=== PATIENT | male | born 1975 | race Caucasian/White ===

== ENCOUNTER 2017-12-09 11:03 | Observation (INO) ==
[2017-12-09] MEDS ORDERED: Dextrose 50% in Water 50 ML Vial IV.PUSH PRN (15:00)
[2017-12-09] MEDS ORDERED: Senna/Docusate Sodium 8.6/50 MG Tablet PO PRN (15:06)
[2017-12-09] MEDS ORDERED: Docusate Sodium 100 MG Capsule PO PRN (15:06)
[2017-12-09] MEDS ORDERED: Aluminum/Magnesium/Simethacone Susp 30 ML UDC PO PRN (15:06)
[2017-12-09] MEDS: Sod Chloride 0.9% Inj 1,000 ML IV.CONT SCH (16:20)
--- NOTE | 2017-12-09 17:24 | P.HP ---
History of Present Illness Primary Care Physician: UNKNOWN Chief Complaint: Right facial numbness History of Present Illness: This is a 41-year-old male with a history of anxiety, hypothyroidism, hyperlipidemia and hypertension. He presents to the emergency department because of right facial numbness. Started about 6 days ago when he felt tingling sensation in the right side of his face. When he was driving he felt like there was an ice pack on his face. He was evaluated by his primary care physician and was prescribed prednisone which he started taking yesterday and sent him for blood work and x-ray. He presents to the emergency department because of worsening numbness not including his tongue. Denies swallowing difficulty, speech impediment, fever, chills, extremity numbness and weakness. For the last half an hour, he complains of pain behind his right eye. No visual changes. He tolerated aspirin that was given in the emergency department. States he does not really have an allergic reaction just develops upset stomach. EKG tracing interpreted by me with sinus rhythm no acute ST-T changes. Chest x-ray image without acute pulmonary disease independently reviewed by me. All other systems reviewed negative Review of Systems All other systems reviewed negative except as stated in HPI PMFSH - History History Provided By: Patient, Family Member - Medical History Medical History: Medical History (Last Reviewed 12/09/17 @ 17:19 by Saeid Vargas MD) Anxiety Depression Hypercholesteremia Hypertension Thyroid condition - Surgical History Surgical History: Surgical History (Last Reviewed 12/09/17 @ 17:19 by Saeid Vargas MD) Hx of vasectomy - Family History Family History: Family History (Last Updated 12/09/17 @ 17:20 by Saeid Vargas MD) Other No pertinent family history - Tobacco History Second Hand Smoke Exposure: No Tobacco Use In Past 30 Days: No Smoking Status: Former smoker Tobacco Type: Cigarettes - Alcohol History How Often Do You Have a Drink Containing Alcohol: 2 to 4 times a month - Substance Use History Substance History: No History of Abuse - Travel History Recent Travel in the [place] Within the Last 8 Weeks: No Recent Travel Out of the Country Within the Last 8 Weeks: No - Immunization History Tetanus Immunization: Unsure Medications and Allergies Active Medications: Active Medications Acetaminophen (Tylenol) 650 mg PO Q4H PRN PRN Reason: Temp > 100.4 Al Hydrox/Mg Hydrox/Simethicone (Mag-Al Plus Susp Liq) 30 ml PO Q6H PRN PRN Reason: DYSPEPSIA Al Hydroxide/Mg Hydroxide (Milk Of Magnesia Liq) 30 ml PO DAILY PRN PRN Reason: SEVERE CONSITIPATION Aspirin (Ecotrin) 325 mg PO DAILY [facility] Atorvastatin Calcium (Lipitor) 40 mg PO HS [facility] Buspirone HCl (Buspar) 10 mg PO BID [facility] Calcium Carbonate (Tums Chew) 1,000 mg CHEW TID PRN PRN Reason: DYSPEPSIA Dextrose (D50w Vial) 50 ml IV.PUSH UNSCH PRN PRN Reason: PER HYPOGLYCEMIA PROTOCOL Docusate Sodium (Colace) 100 mg PO BID PRN PRN Reason: CONSTIPATION Enalaprilat (Vasotec Inj) 1.25 mg IV.PUSH Q4H PRN PRN Reason: For SBP > 220 or DBP > 120 Glucagon (Glucagon Inj) 1 mg OTHER UNSCH PRN PRN Reason: for Hypoglycemia Protocol Sodium Chloride (Ns Inj) 1,000 mls @ 70 mls/hr IV.CONT .[id number] [facility] [place] Insulin Aspart (Novolog Insulin Correctional Sugar Inj) 0 unit SQ ACHS [facility]IB[facility]AV; Protocol Levothyroxine Sodium (Synthroid) 0 mcg PO .COMPLEX [facility] Loratadine (Claritin) 10 mg PO DAILY [facility] [place] Non-Formulary Medication (Lamotrigine [Lamictal]) 200 mg PO BID [facility] [place] Non-Formulary Medication (Ranitidine Hcl [Zantac 75]) 75 mg PO DAILY [facility] Ondansetron HCl (Zofran Inj) 4 mg IV.PUSH Q6H PRN PRN Reason: NAUSEA Senna/Docusate Sodium (Felicity-Colace) 1 tab PO BID PRN PRN Reason: CONSTIPATION Sertraline HCl (Zoloft) 100 mg PO HS [facility] [place] Sodium Chloride (Ns Flush) 2 ml IV.FLUSH PRN PRN PRN Reason: FLUSH AFTER USING IV ACCESS Sodium Chloride (Ns Flush) 2 ml IV.FLUSH BID [facility] Trazodone HCl (Desyrel) 100 mg PO HS [facility] Allergies Allergy/AdvReac Type Severity Reaction Status Date / Time aspirin AdvReac Gastrointestinal Verified 12/09/17 11:15 Upset Home Medications Medication Instructions Recorded Confirmed Type atorvastatin 40 mg PO HS 12/09/17 12/09/17 History buspirone 10 mg PO BID 12/09/17 12/09/17 History lamotrigine [Lamictal] 200 mg PO BID 12/09/17 12/09/17 History levothyroxine [Synthroid] See Label Instructions .ROUTE 12/09/17 12/09/17 History .COMPLEX loratadine 10 mg PO DAILY 12/09/17 12/09/17 History methylprednisolone 4 mg PO PER PKG DIR 12/09/17 12/09/17 History metoprolol tartrate 25 mg PO HS 12/09/17 12/09/17 History ranitidine HCl [Zantac 75] 75 mg PO DAILY 12/09/17 12/09/17 History sertraline [Zoloft] 100 mg PO HS 12/09/17 12/09/17 History testosterone cypionate 150 mg IM Q2W 12/09/17 12/09/17 History [Depo-Testosterone] trazodone 100 mg PO HS 12/09/17 12/09/17 History Exam Vital signs: Vital Signs 12/09/17 16:00 Temperature 97.2 F L Pulse Rate 70 Respiratory Rate 20 Blood Pressure 135/89 Pulse Oximetry 94 L Intake & Output 12/08/17 12/09/17 12/09/17 18:59 06:59 18:59 Weight 146.7 kg Other: Weight On Admission 146.7 kg Narrative: GENERAL: Well-developed, well-nourished in no distress SKIN: Warm and dry. HEAD: Atraumatic. Normocephalic. EYES: Pupils equal and round. No scleral icterus. No injection or drainage. ENT: No nasal bleeding or discharge. Mucous membranes pink and moist. NECK: Trachea midline. No JVD. CARDIOVASCULAR: Regular rate and rhythm. RESPIRATORY: No accessory muscle use. Clear to auscultation. Breath sounds equal bilaterally. GASTROINTESTINAL: Abdomen soft, non-tender, nondistended. MUSCULOSKELETAL: Extremities without clubbing, cyanosis, or edema. No obvious deformities. NEUROLOGICAL: Awake and alert. No obvious cranial nerve deficits. Motor grossly within normal limits. Five out of 5 muscle strength in the arms and legs. Normal speech. Decreased sensation right side of the face PSYCHIATRIC: Appropriate mood and affect; insight and judgment normal. Results - Labs Labs: Laboratory Results - last 24 hr 12/09/17 16:33 POC Glucose 103 - Imaging Head CT without acute findings Caprini VTE Risk Assessment Caprini VTE Risk Assessment: No/Low Risk (score <= 1) Caprini Risk Assessment Model: Point Value = 1 Point Value = 2 Point Value = 3 Point Value = 5 Age 41-60 Minor surgery BMI > 25 kg/m2 Swollen legs Varicose veins or History of unexplained or recurrent spontaneous Oral contraceptives or hormone replacement Sepsis (< 1 month) Serious lung disease, including pneumonia (< 1 month) Abnormal pulmonary function Acute myocardial infarction Congestive heart failure (< 1 month) History of inflammatory bowel disease Medical patient at bed rest Age 61-74 Arthroscopic surgery Major open surgery (> 45 min) Laparoscopic surgery (> 45 min) Malignancy Confined to bed (> 72 hours) Immobilizing plaster cast Central venous access Age >= 75 History of VTE Family history of VTE Factor V Leiden Prothrombin [id number] Lupus anticoagulant Anticardiolipin antibodies Elevated serum homocysteine Heparin-induced thrombocytopenia Other congenital or acquired thrombophilia Stroke (< 1 month) Elective arthroplasty Hip, pelvis, or leg fracture Acute spinal cord injury (< 1 month) Prophylaxis Regimen: Total Risk Factor Score Risk Level Prophylaxis Regimen 0-1 Low Early ambulation 2 Moderate Order ONE of the following: *Sequential Compression Device (SCD) *Heparin 5000 units SQ BID 3-4 Higher Order ONE of the following medications: *Heparin 5000 units SQ TID *Enoxaparin/Lovenox 40 mg SQ daily (WT < 150 kg, CrCl > 30 mL/min) *Enoxaparin/Lovenox 30 mg SQ daily (WT < 150 kg, CrCl > 10-29 mL/min) *Enoxaparin/Lovenox 30 mg SQ BID (WT < 150 kg, CrCl > 30 mL/min) AND/OR *Sequential Compression Device (SCD) 5 or more Highest Order ONE of the following medications: *Heparin 5000 units SQ TID (Preferred with Epidurals) *Enoxaparin/Lovenox 40 mg SQ daily (WT < 150 kg, CrCl > 30 mL/min) *Enoxaparin/Lovenox 30 mg SQ daily (WT < 150 kg, CrCl > 10-29 mL/min) *Enoxaparin/Lovenox 30 mg SQ BID (WT < 150 kg, CrCl > 30 mL/min) AND *Sequential Compression Device (SCD) Assessment and Plan - Plan This is a 41-year-old male with a history of anxiety, hypothyroidism, hyperlipidemia and hypertension. He presents to the emergency department because of right facial numbness. Started about 6 days ago when he felt tingling sensation in the right side of his face. When he was driving he felt like there was an ice pack on his face. He was evaluated by his primary care physician and was prescribed prednisone which he started taking yesterday and sent him for blood work and x-ray. He presents to the emergency department because of worsening numbness not including his tongue. Denies swallowing difficulty, speech impediment, fever, chills, extremity numbness and weakness. For the last half an hour, he complains of pain behind his right eye. No visual changes. He tolerated aspirin that was given in the emergency department. States he does not really have an allergic reaction just develops upset stomach. EKG tracing interpreted by me with sinus rhythm no acute ST-T changes. Chest x-ray image without acute pulmonary disease independently reviewed by me. Persistent right facial numbness, CVA suspect. Continue aspirin and start stroke workup which will include MRI MRA of the brain, carotid ultrasound, echocardiogram and monitor patient on telemetry. Check A1c. Patient states he just had a lipid panel check will request records from his PCP. Consult neurology, PT/OT/ST Leukocytosis patient on steroids. Will monitor. No evidence of infection at this time DVT prophylaxis with SCD and early ambulation
[2017-12-09] MEDS: Insulin NovoLOG Aspart Correctional Sugar Inj SQ SCH ×2 (17:51→20:30)
--- NOTE | 2017-12-09 20:06 | US ---
EXAM DATE: 12/09/2017 12:00 AM EDT AGE/SEX: 41 years / Male INDICATIONS: Transient ischemic attack. CLINICAL DATA: This is the patient's initial encounter. Patient reports that signs and symptoms have been present for 1 day and indicates a pain score of 0/10. MEDICAL/SURGICAL HISTORY: Hypercholesterolemia. Hypertension. Anxiety. Depression. None. COMPARISON: . VELOCITY PARAMETERS: ICA/CCA Ratio: Right 1.0 , Left 0.9 ICA: Right 73 cm/sec, Left 82 cm/sec CCA: Right 75 cm/sec, Left 92 cm/sec ECA: Right 108 cm/sec, Left 108 cm/sec Vertebral: Right 42 cm/sec antegrade, Left 64 cm/sec antegrade FINDINGS: Right Carotid: No significant plaque is visualized.The waveforms are within normal limits. Left Carotid: No significant plaque is visualized. The waveforms are within normal limits. Other: None. CONCLUSION: 1. Right Internal Carotid Artery: No significant plaque or narrowing. 2. Left Internal Carotid Artery: No significant plaque or narrowing. Electronically signed by: Jack Avalos MD 12/09/2017 8:04 PM EDT
[2017-12-09] MEDS: lamoTRIgine 100 MG Tablet PO SCH (20:18)
[2017-12-09] MEDS: Acetaminophen 325 MG Tablet PO PRN (20:18)
[2017-12-09] MEDS: traZODone 100 MG Tablet PO SCH (20:19)
[2017-12-09] MEDS: Famotidine 20 MG Tablet PO SCH (20:20)
[2017-12-09] MEDS: Sertraline 100 MG Tablet PO SCH (20:21)
[2017-12-10] MEDS ORDERED: Ketorolac Inj 30 MG/ML (IVP) Vial IV.PUSH PRN (00:07)
[2017-12-10] MEDS: Sod Chloride 0.9% Inj 1,000 ML IV.CONT SCH ×2 (06:14→21:38)
[2017-12-10] MEDS: Acetaminophen 325 MG Tablet PO PRN (06:15)
[2017-12-10] MEDS: Levothyroxine 100 MCG Tablet PO SCH (06:15)
[2017-12-10] MEDS ORDERED: Naloxone Inj 0.4 MG/ML Vial IV.PUSH PRN (09:26)
--- NOTE | 2017-12-10 09:31 | P.PN ---
Subjective Interval history: Follow-up facial numbness. Numbness has not abated. Also complains of throbbing/stabbing right-sided headache behind eye temporarily with Tylenol and IV Toradol. Also has light sensitivity. Physical Exam Vital signs: Vital Signs 12/09/17 16:00 12/09/17 17:16 12/09/17 20:00 Temperature 97.2 F L 97.1 F L Pulse Rate 70 76 71 Respiratory Rate 20 20 Blood Pressure 135/89 145/82 H Pulse Oximetry 94 L 97 12/09/17 20:23 12/09/17 23:10 12/10/17 00:00 Temperature 97 F L Pulse Rate 83 Respiratory Rate 20 Blood Pressure 134/58 L Pulse Oximetry 96 97 97 12/10/17 04:00 12/10/17 08:05 Temperature 96 F L Pulse Rate 77 Respiratory Rate 20 Blood Pressure 129/78 Pulse Oximetry 96 96 Intake & Output 12/09/17 12/10/17 12/10/17 18:59 06:59 18:59 Intake Total 1570 / 1570 Balance 1570 / 1570 Weight 146.7 kg 146.7 kg Intake: IV 1000 / 1000 NS Inj 1,000 ML @ 70 mls/hr IV. 1000 / 1000 CONT .[id number] VAIBHAV Rx#: [id number] Oral 570 / 570 Other: # Voids 1 3 Weight On Admission 146.7 kg Narrative: GENERAL: Well-developed, well-nourished in no distress SKIN: Warm and dry. CARDIOVASCULAR: Regular rate and rhythm. RESPIRATORY: No accessory muscle use. Clear to auscultation. Breath sounds equal bilaterally. GASTROINTESTINAL: Abdomen soft, non-tender, nondistended. MUSCULOSKELETAL: Extremities without clubbing, cyanosis, or edema. No obvious deformities. NEUROLOGICAL: Awake and alert. No obvious cranial nerve deficits. Motor grossly within normal limits. Five out of 5 muscle strength in the arms and legs. Normal speech. Decreased sensation right side of the face PSYCHIATRIC: Appropriate mood and affect; insight and judgment normal. Results - Labs Laboratory Results - last 24 hr 12/09/17 12/09/17 12/10/17 16:33 20:29 07:49 POC Glucose 103 125 H 96 - Imaging Impressions Carotid Doppler Study 12/09/17 00:00 CONCLUSION: 1. Right Internal Carotid Artery: No significant plaque or narrowing. 2. Left Internal Carotid Artery: No significant plaque or narrowing. - Procedures none Assessment and Plan - Plan This is a 41-year-old male with a history of anxiety, hypothyroidism, hyperlipidemia and hypertension. He presents to the emergency department because of right facial numbness. Persistent right facial numbness, CVA suspect. Carotid ultrasound negative for significant stenosis. Continue aspirin and f/u stroke workup which will include MRI of the brain, echocardiogram and monitor patient on telemetry which so far is benign. Check A1c. Neurology ordered more lab tests including ESR, thyroid function tests, RPR and ENIO. Patient states he just had a lipid panel check will request records from his PCP. Consult neurology, PT/OT/ST. Patient also complains of headache possible migraine continue Tylenol and IV Toradol. Consider Fioricet or Imitrex if MRI negative Leukocytosis patient on steroids. Will monitor. No evidence of infection at this time. Repeat CBC today DVT prophylaxis with SCD and early ambulation Discharge Planning: per neuro
[2017-12-10] MEDS: Insulin NovoLOG Aspart Correctional Sugar Inj SQ SCH ×4 (09:34→23:10)
[2017-12-10 09:38] LABS: Baso % (Auto) 0.4 % (0.0-2.0); Eos # (Auto) 0.1 th/mm3 (0.0-0.4); Eos % (Auto) 1.1 % (0.0-4.0); Hematocrit 44.1 % (39.0-51.0); Hemoglobin 15.6 gm/dL (13.0-17.0); Lymph # (Auto) 2.5 th/mm3 (1.0-4.8); Lymph % (Auto) 26.4 % (9.0-44.0); Mean Corpuscular HGB Conc 35.3 % (32.0-36.0); Mean Corpuscular Hemoglobin 30.8 pg (27.0-34.0); Mean Corpuscular Volume 87.1 fL (80.0-100.0); Mean Platelet Volume 7.8 fL (7.0-11.0); Mono # (Auto) 0.5 th/mm3 (0.0-0.9); Mono % (Auto) 5.2 % (0.0-8.0); Neut # (Auto) 6.4 th/mm3 (1.8-7.7); Neut % (Auto) 66.9 % (16.0-70.0); Platelet Count 276 th/mm3 (150-450); Red Blood Count 5.06 mil/mm3 (4.50-5.90); Red Cell Distribution Width 12.9 % (11.6-17.2); White Blood Count 9.5 th/mm3 (4.0-11.0)
[2017-12-10] MEDS: Famotidine 20 MG Tablet PO SCH ×2 (10:00→21:17)
[2017-12-10] MEDS: lamoTRIgine 100 MG Tablet PO SCH ×2 (10:01→21:16)
[2017-12-10] MEDS: Loratadine 10 MG Tablet PO SCH (10:01)
[2017-12-10 10:49] LABS: Bilirubin,Urine Negative (Negative); Clarity,Urine Clear (Clear); Color,Urine Yellow (Yellw/Straw); Glucose,Urine (UA) Negative (Negative); Leukocyte Esterase,Urine Negative (Negative); Nitrite,Urine Negative (Negative); PH,Urine 5.5 (5.0-8.5); Specific Gravity,Urine Greater/Equal 1.030 (1.002-1.035); Urobilinogen,Urine 0.2 mg/dL (Less than 2)
[2017-12-10 10:55] LABS: Mucus,Urine Few /lpf (Occasional); RBC,Urine 0-3 /hpf (0-3); Squamous Epithelial Cell,Urine 0-5 /hpf (0-5)
[2017-12-10] MEDS: Ketorolac Inj 30 MG/ML (IVP) Vial IV.PUSH PRN ×2 (11:41→20:42)
[2017-12-10 12:47] LABS: Free T4 (Free Thyroxine) 0.71 ng/dL (0.76-1.46)
--- NOTE | 2017-12-10 12:47 | ECHRPT ---
Indication: CVA / TIA CONCLUSIONS Normal left ventricular size. Wall thickness is measured at the upper limits of normal. The left ventricular systolic function is normal with an estimated ejection fraction in the range of 55-60%. There is trace tricuspid valve regurgitation. The estimated pulmonary arterial pressure is 28 mmHg. BP: / HR: Rhythm: MEASUREMENTS (Male / Female) Normal Values Technical Quality:Fair 2D ECHO LV Diastolic Diameter PLAX 5.0 cm 4.2 - 5.9 / 3.9 - 5.3 cm LV Systolic Diameter PLAX 3.6 cm IVS Diastolic Thickness 1.2 cm 0.6 - 1.0 / 0.6 - 0.9 cm LVPW Diastolic Thickness 1.1 cm 0.6 - 1.0 / 0.6 - 0.9 cm LV Relative Wall Thickness 0.5 RV Internal Dim ED PLAX 2.8 cm LVOT Diameter 2.1 cm Aortic Root Diameter 3.1 cm LA Systolic Diameter LX 3.5 cm 3.0 - 4.0 / 2.7 - 3.8 cm M-MODE AV Cusp Separation MM 2.2 cm DOPPLER AV Peak Velocity 134.0 cm/s AV Peak Gradient 7.2 mmHg LVOT Peak Velocity 121.0 cm/s LVOT Peak Gradient 5.9 mmHg AV Area Cont Eq pk 3.1 cm Mitral E Point Velocity 95.3 cm/s Mitral A Point Velocity 58.2 cm/s Mitral E to A Ratio 1.6 LV E' Lateral Velocity 15.7 cm/s Mitral E to LV E' Lateral Ratio 6.1 LV E' Septal Velocity 16.0 cm/s Mitral E to LV E' Septal Ratio 6.0 TR Peak Velocity 209.0 cm/s TR Peak Gradient 17.5 mmHg Right Atrial Pressure 10.0 mmHg Pulmonary Artery Systolic Pressu 27.5 mmHg Right Ventricular Systolic Press 27.5 mmHg PV Peak Velocity 100.0 cm/s PV Peak Gradient 4.0 mmHg FINDINGS LEFT VENTRICLE Normal left ventricular size. Wall thickness is measured at the upper limits of normal. The left ventricular systolic function is normal with an estimated ejection fraction in the range of 55-60%. RIGHT VENTRICLE Normal right ventricular size and systolic function. LEFT ATRIUM The left atrial size is normal. RIGHT ATRIUM The right atrial size is normal. ATRIAL SEPTUM Normal atrial septal thickness without atrial level shunting by limited color doppler interrogation. AORTA The aortic root and proximal ascending aorta are normal in size on limited imaging. MITRAL VALVE Structurally normal mitral valve. No mitral valve stenosis or regurgitation. AORTIC VALVE Trileaflet aortic valve. TRICUSPID VALVE There is trace tricuspid valve regurgitation. The estimated pulmonary arterial pressure is 28 mmHg. PULMONARY VALVE No pulmonary valve regurgitation or stenosis. VESSELS The inferior vena cava is normal in size. PERICARDIUM No pericardial effusion. Nando Benoit MD, FACC (Electronically Signed) Final Date:10 December 2017 12:46
--- NOTE | 2017-12-10 13:21 | MB ---
cc: Uche Dill MD DATE: 12/10/2017 HISTORY OF PRESENT ILLNESS: A 41-year-old right-handed male with hypertension, hypercholesterolemia, hypothyroidism, dysplastic polyp in his colon. He does not take an aspirin a day. He has 2 grandmothers who had miscarriages. No blood clots in the family. He noticed about a week ago, his right cheek began to feel numb and that seemed to grow steadily over the week, worse in the last 2 days involved. It does involve his tongue. No difficulty swallowing. He has had a headache behind both of his eyes yesterday. He usually does get very many headaches. REVIEW OF SYSTEMS:. He denied diabetes, MA, stent, angioplasty, AFib, Coumadin; renal, hepatic or pulmonary disease, lupus, ulcer, seizure or stroke. SOCIAL HISTORY: Nonsmoker, occasionally has a drink, lives with his . FAMILY HISTORY: Positive for cancer. Negative for seizure or stroke. MEDICATIONS AT HOME: He is on: 1. Lamictal 200 b.i.d. 2. BuSpar 10 b.i.d. 3. Atorvastatin. 4. Loratadine. 5. Thyroid medicine. 6. Metoprolol. 7. Methylprednisolone 8. Zoloft 100 at night. 9. Zantac. 10. Trazodone. PHYSICAL EXAMINATION: GENERAL: He does not look particularly nervous. VITAL SIGNS: Afebrile, 70, 20, 137/83. NECK: There are no carotid bruits. HEART: Regular rate and rhythm. I did not a murmur. NEUROLOGIC: Pupils are equal. Visual beck are full. Extraocular movements intact without nystagmus. Face moves symmetrically. Tongue was midline. Pinprick is diminished in the V2, V3 distribution. This is on the right side compared to the left. Pinprick was intact in the hands, arms and legs bilaterally. He had normal strength in upper and lower extremities bilaterally. DTRs are 1 plus and symmetric throughout. Toes are downgoing bilaterally. There is no ankle clonus. Speech is fluent. He is not aphasic. No apparent distress. LABORATORY DATA: CBC and sedimentation rate were normal. RPR is pending. ENIO is pending. UA is negative. His B12 is low at 270. Thyroid T4 slightly low. Folate is normal. He had an echocardiogram, which is normal. Left atrial size normal. He had a carotid ultrasound study. It was read as negative. IMPRESSION: A mass or growing aneurysm could be considered. A stroke is another consideration. We do an MRI of his brain, MRA and neck and [place]. We will know more after we do that. Now he is on aspirin a day. Some additional labs are pending. I would recommend giving him a B12 shot. We will see him back in followup. MD MARIBELL Michel/ct , 12:59 PM , 01:06 PM
--- NOTE | 2017-12-10 14:48 | MR ---
EXAM DATE: 12/10/2017 10:22 AM EDT AGE/SEX: 41 years / Male INDICATIONS: CVA. Right sided numbness. CLINICAL DATA: This is the patient's initial encounter. Patient reports that signs and symptoms have been present for 1 day and indicates a pain score of 0/10. MEDICAL/SURGICAL HISTORY: Hypertension. . Vasectomy. COMPARISON: [facility], CT HEAD W/O CONTRAST, 12/09/2017. . TECHNIQUE: 3D [id number] MRA was performed. Source images, multiplanar STS MIP, and 3D volum e MIP reconstructions were reviewed. FINDINGS: There is excellent visualization of the major intracranial arteries out to the second-order branch ve ssels. There is no evidence for aneurysm, vessel truncation or stenosis, and no evidence for vascula r malformation. There are patent bilateral posterior communicating arteries. CONCLUSION: 1. Negative MRA Cow ([place]) non contrast. Electronically signed by: Rivera Muniz MD 12/10/2017 2:46 PM EDT
[2017-12-10 14:58] LABS: Potassium 3.7 meq/L (3.5-5.1)
[2017-12-10 15:01] LABS: Calcium 7.8 mg/dL (8.5-10.1)
[2017-12-10 15:02] LABS: Albumin 3.5 g/dL (3.4-5.0)
[2017-12-10 15:06] LABS: Total Protein 6.6 g/dL (6.4-8.2)
--- NOTE | 2017-12-10 15:08 | MR ---
EXAM DATE: 12/10/2017 10:22 AM EDT AGE/SEX: 41 years / Male INDICATIONS: Stroke. Right sided numbness. CLINICAL DATA: This is the patient's initial encounter. Patient reports that signs and symptoms have been present for 1 day and indicates a pain score of 0/10. MEDICAL/SURGICAL HISTORY: Hypertension. . Vasectomy. COMPARISON: No prior exams available for comparison. TECHNIQUE: 10 ml Gadavist (gadobutrol) contrast infused MRA (cumulative dose for multiple exams) of the extracranial circulation was performed using a neurovascular coil. Postprocessing was performed , including rotating sub-volume maximum intensity projections of each carotid artery, rotating full-v olume maximum intensity projections of both carotid arteries, sagittal and coronal sliding thin-slab reformations of each carotid artery, and left oblique sliding thin-slab reformation through the aorti c arch to include the origin of the arch branch vessels. FINDINGS: Aortic Arch : There is a three-vessel origin of the great vessels from the aorta. No evidence of o stial narrowing. Right Carotid : The common carotid artery is intact. The carotid bulb has a normal configuration wi thout ulceration or narrowing. The internal carotid artery lumen is smooth without stenosis. The ex ternal carotid artery is intact. Left Carotid : The common carotid artery is intact. The carotid bulb has a normal configuration wit hout ulceration or narrowing. The internal carotid artery lumen is smooth without stenosis. The ext ernal carotid artery is intact. Vertebrals : The vertebral arteries have a symmetric diameter. No stenotic lesions are seen. CONCLUSION: 1. Negative MRA Carotids. Percent stenosis is calculated using the diameter of the stenotic region over the diameter of the nor mal distal internal carotid artery Electronically signed by: Rivera Muniz MD 12/10/2017 3:07 PM EDT
[2017-12-10 15:14] LABS: Thyroid Stimulating Hormone 7.51 uIU/mL (0.358-3.740)
--- NOTE | 2017-12-10 15:23 | MR ---
EXAM DATE: 12/10/2017 10:22 AM EDT AGE/SEX: 41 years / Male INDICATIONS: CVA. Right sided numbness. CLINICAL DATA: This is the patient's initial encounter. Patient reports that signs and symptoms have been present for 1 day and indicates a pain score of 0/10. MEDICAL/SURGICAL HISTORY: Hypertension. . Vasectomy. COMPARISON: [facility], CT HEAD W/O CONTRAST, 12/09/2017. . TECHNIQUE: Multiplanar, multisequence examination of the brain was performed without and with 10 ml G adavist (gadobutrol) contrast as a cumulative dose for multiple exams. FINDINGS: Cerebrum: The ventricles are normal for age. No evidence of midline shift, mass lesion, hemorrhage or acute infarction. No extraaxial fluid collections are seen. The pituitary gland and suprasellar cistern are normal in configuration. White Matter: No significant signal abnormalities are seen in the white matter. Posterior Fossa: There is focal signal abnormality involving the right brachium pontis with mild enha ncement of this area raising the possibility of subacute infarct. Clinical correlation is recommended . The 4th ventricle is midline. The cerebellopontine angle is unremarkable. The cerebellar tonsils are normal in position. Diffusion Imaging: No focal areas of restricted diffusion are seen. No evidence of acute infarction . Extracranial: The visualized portions of the orbits and paranasal sinuses are unremarkable. Post Contrast: No abnormal areas of parenchymal or dural enhancement. No evidence of blood-brain ba rrier breakdown. CONCLUSION: 1. Focal signal abnormality involving the right brachium pontis with mild enhancement of this area r aising the possibility of subacute infarct. Clinical correlation is recommended. Electronically signed by: Rivera Muniz MD 12/10/2017 3:22 PM EDT
[2017-12-10] MEDS ORDERED: Gadobutrol PF 10 MMOL/10 ML Vial (for RAD) IV.SIG ONE (15:38)
[2017-12-10 18:38] LABS: Hemoglobin A1c 4.9 % (4.3-6.0)
[2017-12-10 20:50] VITALS: RESP 18
[2017-12-10 20:52] LABS: Creatine Kinase 56 U/L (39-308)
[2017-12-10] MEDS: Sertraline 100 MG Tablet PO SCH (21:17)
[2017-12-10] MEDS: traZODone 100 MG Tablet PO SCH (21:17)
[2017-12-11] MEDS: Ketorolac Inj 30 MG/ML (IVP) Vial IV.PUSH PRN ×2 (03:53→08:55)
[2017-12-11] MEDS: Levothyroxine 100 MCG Tablet PO SCH (05:05)
[2017-12-11 05:54] LABS: Chloride 109 meq/L (98-107); Potassium 3.7 meq/L (3.5-5.1); Sodium 143 meq/L (136-145)
[2017-12-11 05:59] LABS: Anion Gap 8 meq/L (5-15); Blood Urea Nitrogen 18 mg/dL (7-18); Carbon Dioxide 26.2 meq/L (21.0-32.0); Glucose,Random 97 mg/dL (74-106)
[2017-12-11 06:01] LABS: Baso % (Auto) 0.4 % (0.0-2.0); Eos # (Auto) 0.2 th/mm3 (0.0-0.4); Hematocrit 43.1 % (39.0-51.0); Hemoglobin 14.5 gm/dL (13.0-17.0); Lymph # (Auto) 2.6 th/mm3 (1.0-4.8); Lymph % (Auto) 30.1 % (9.0-44.0); Mean Corpuscular HGB Conc 33.6 % (32.0-36.0); Mean Corpuscular Hemoglobin 29.5 pg (27.0-34.0); Mean Corpuscular Volume 87.9 fL (80.0-100.0); Mean Platelet Volume 7.8 fL (7.0-11.0); Mono # (Auto) 0.7 th/mm3 (0.0-0.9); Mono % (Auto) 7.5 % (0.0-8.0); Neut # (Auto) 5.2 th/mm3 (1.8-7.7); Platelet Count 263 th/mm3 (150-450); Red Cell Distribution Width 12.8 % (11.6-17.2); White Blood Count 8.7 th/mm3 (4.0-11.0)
[2017-12-11 06:02] LABS: Glomerular Filtration Rate 55 mL/min (>89)
[2017-12-11] MEDS: Insulin NovoLOG Aspart Correctional Sugar Inj SQ SCH ×2 (08:45→12:07)
[2017-12-11] MEDS: lamoTRIgine 100 MG Tablet PO SCH (08:52)
[2017-12-11] MEDS: Loratadine 10 MG Tablet PO SCH (08:53)
[2017-12-11] MEDS: Famotidine 20 MG Tablet PO SCH (08:53)
[2017-12-11] MEDS ORDERED: Butalbital/APAP/Caff 50/325/40 MG Tablet PO PRN (10:04)
--- NOTE | 2017-12-11 10:08 | P.PN ---
Subjective Interval history: Follow-up right facial numbness. States numbness is stable with improving headache. Discussed results of MRI with patient and recommended outpatient follow-up with serial scans could be subacute CVA versus tumor versus multiple sclerosis. Patient not allowed to drive until cleared by neurology. Discussed with Dr. Dill Physical Exam Vital signs: Vital Signs 12/10/17 12:00 12/10/17 16:00 12/10/17 19:49 Temperature 97.4 F L 97.6 F Pulse Rate 80 79 Respiratory Rate 20 20 Blood Pressure 127/82 127/80 Pulse Oximetry 96 95 97 12/10/17 20:00 12/11/17 00:00 12/11/17 08:00 Temperature 97.6 F 97.9 F 98.1 F Pulse Rate 68 78 70 Respiratory Rate 18 18 18 Blood Pressure 140/85 138/90 126/76 Pulse Oximetry 95 96 98 12/11/17 08:39 Temperature Pulse Rate Respiratory Rate Blood Pressure Pulse Oximetry 96 Intake & Output 12/10/17 12/11/17 12/11/17 18:59 06:59 18:59 Intake Total 540 / 540 1600 / 1600 Balance 540 / 540 1600 / 1600 Weight 146.9 kg Intake: IV 1600 / 1600 NS Inj 1,000 ML @ 70 mls/hr IV. 1600 / 1600 CONT .[id number] Rx#: [id number] Oral 540 / 540 Other: # Voids 3 3 Date of Last Bowel Movement 12/10/17 Narrative: GENERAL: Well-developed, well-nourished in no distress SKIN: Warm and dry. CARDIOVASCULAR: Regular rate and rhythm. RESPIRATORY: No accessory muscle use. Clear to auscultation. Breath sounds equal bilaterally. GASTROINTESTINAL: Abdomen soft, non-tender, nondistended. MUSCULOSKELETAL: Extremities without clubbing, cyanosis, or edema. No obvious deformities. NEUROLOGICAL: Awake and alert. No obvious cranial nerve deficits. Motor grossly within normal limits. Five out of 5 muscle strength in the arms and legs. Normal speech. Decreased sensation right side of the face PSYCHIATRIC: Appropriate mood and affect; insight and judgment normal. Results - Labs CBC & Chem 7: 12/11/17 05:00 12/11/17 05:00 Laboratory Results - last 24 hr 12/10/17 12/10/17 12/10/17 06:10 08:55 08:55 CBC w Diff WBC RBC Hgb Hct MCV MCH MCHC RDW Plt Count MPV Neut % (Auto) Lymph % (Auto) [place] % (Auto) Eos % (Auto) Baso % (Auto) Neut # (Auto) Lymph # (Auto) [place]ary # (Auto) Eos # (Auto) Baso # (Auto) WBC Differential Differential Comment Sodium Potassium Chloride Carbon Dioxide Anion Gap BUN Creatinine Estimated GFR POC Glucose Random Glucose Hemoglobin A1c 4.9 Calcium Total Bilirubin Direct Bilirubin Indirect Bilirubin AST ALT Alkaline Phosphatase Total Creatine Kinase Troponin I Total Protein Albumin Vitamin B12 270 Folate 8.0 TSH Free T4 0.71 L Ur Collection Type Urine Color Urine Clarity Urine pH Ur Specific [place] Urine Protein Urine Glucose (UA) Urine Ketones Urine Occult Blood Urine Nitrate Urine Bilirubin Urine Urobilinogen Ur Leukocyte Esterase Urine RBC Ur Squamous Epith Cells Urine Mucus Micro UA Comment Ur Microscopic Review Urine Culture Comments RPR Nonreactive 12/10/17 12/10/17 12/10/17 08:55 10:30 11:26 CBC w Diff WBC RBC Hgb Hct MCV MCH MCHC RDW Plt Count MPV Neut % (Auto) Lymph % (Auto) [place] % (Auto) Eos % (Auto) Baso % (Auto) Neut # (Auto) Lymph # (Auto) [place]ary # (Auto) Eos # (Auto) Baso # (Auto) WBC Differential Differential Comment Sodium 141 Potassium 3.7 Chloride 108 H Carbon Dioxide 25.0 Anion Gap 8 BUN 13 Creatinine 1.20 Estimated GFR 66 L POC Glucose 82 Random Glucose 87 Hemoglobin A1c Calcium 7.8 L D Total Bilirubin 0.4 Direct Bilirubin 0.1 Indirect Bilirubin 0.3 AST 11 L ALT 26 Alkaline Phosphatase 79 Total Creatine Kinase Troponin I Total Protein 6.6 D Albumin 3.5 D Vitamin B12 Folate TSH 7.510 H Free T4 Ur Collection Type Clean catch Urine Color Yellow Urine Clarity Clear Urine pH 5.5 Ur Specific [place] Greater/equal 1.030 Urine Protein Trace Urine Glucose (UA) Negative Urine Ketones Negative Urine Occult Blood Negative Urine Nitrate Negative Urine Bilirubin Negative Urine Urobilinogen 0.2 Ur Leukocyte Esterase Negative Urine RBC 0-3 Ur Squamous Epith Cells 0-5 Urine Mucus Few H Micro UA Comment Culture not ind Ur Microscopic Review Microscopic reviewed Urine Culture Comments Culture not ind RPR 12/10/17 12/10/17 12/10/17 16:44 20:05 21:34 CBC w Diff WBC RBC Hgb Hct MCV MCH MCHC RDW Plt Count MPV Neut % (Auto) Lymph % (Auto) [place] % (Auto) Eos % (Auto) Baso % (Auto) Neut # (Auto) Lymph # (Auto) [place]ary # (Auto) Eos # (Auto) Baso # (Auto) WBC Differential Differential Comment Sodium Potassium Chloride Carbon Dioxide Anion Gap BUN Creatinine Estimated GFR POC Glucose 125 H 106 Random Glucose Hemoglobin A1c Calcium Total Bilirubin Direct Bilirubin Indirect Bilirubin AST ALT Alkaline Phosphatase Total Creatine Kinase 56 Troponin I Less than 0.02 L Total Protein Albumin Vitamin B12 Folate TSH Free T4 Ur Collection Type Urine Color Urine Clarity Urine pH Ur Specific [place] Urine Protein Urine Glucose (UA) Urine Ketones Urine Occult Blood Urine Nitrate Urine Bilirubin Urine Urobilinogen Ur Leukocyte Esterase Urine RBC Ur Squamous Epith Cells Urine Mucus Micro UA Comment Ur Microscopic Review Urine Culture Comments RPR 12/11/17 12/11/17 05:00 05:00 CBC w Diff Auto diff final WBC 8.7 RBC 4.90 Hgb 14.5 Hct 43.1 MCV 87.9 MCH 29.5 MCHC 33.6 RDW 12.8 Plt Count 263 MPV 7.8 Neut % (Auto) 60.0 Lymph % (Auto) 30.1 Geary % (Auto) 7.5 Eos % (Auto) 2.0 Baso % (Auto) 0.4 Neut # (Auto) 5.2 Lymph # (Auto) 2.6 Geary # (Auto) 0.7 Eos # (Auto) 0.2 Baso # (Auto) 0.0 WBC Differential . Differential Comment . Sodium 143 Potassium 3.7 Chloride 109 H Carbon Dioxide 26.2 Anion Gap 8 BUN 18 Creatinine 1.40 H Estimated GFR 55 L POC Glucose Random Glucose 97 Hemoglobin A1c Calcium 8.0 L Total Bilirubin Direct Bilirubin Indirect Bilirubin AST ALT Alkaline Phosphatase Total Creatine Kinase Troponin I Less than 0.02 L Total Protein Albumin Vitamin B12 Folate TSH Free T4 Ur Collection Type Urine Color Urine Clarity Urine pH Ur Specific [place] Urine Protein Urine Glucose (UA) Urine Ketones Urine Occult Blood Urine Nitrate Urine Bilirubin Urine Urobilinogen Ur Leukocyte Esterase Urine RBC Ur Squamous Epith Cells Urine Mucus Micro UA Comment Ur Microscopic Review Urine Culture Comments RPR - Imaging ITS Impressions Carotid Doppler Study 12/09/17 00:00 CONCLUSION: 1. Right Internal Carotid Artery: No significant plaque or narrowing. 2. Left Internal Carotid Artery: No significant plaque or narrowing. Neck MRA 12/10/17 00:00 CONCLUSION: 1. Negative MRA Carotids. Percent stenosis is calculated using the diameter of the stenotic region over the diameter of the normal distal internal carotid artery Head MRI 12/10/17 07:45 CONCLUSION: 1. Focal signal abnormality involving the right brachium pontis with mild enhancement of this area raising the possibility of subacute infarct. Clinical correlation is recommended. Head MRA 12/10/17 07:45 CONCLUSION: 1. Negative MRA [place] ([place]) non contrast. - Procedures none Assessment and Plan - Plan This is a 41-year-old male with a history of anxiety, hypothyroidism, hyperlipidemia and hypertension. He presents to the emergency department because of right facial numbness. Persistent right facial numbness, CVA suspect. Focal signal abnormality involving the right brachium pontis with mild enhancement of this area raising the possibility of subacute infarct seen in brain MRI. Discussed with neurology cannot rule out tumor or multiple sclerosis will need outpatient follow-up with serial scans. Carotid ultrasound negative for significant stenosis. Echocardiogram unremarkable. Telemetry benign. Continue aspirin and statin. Risk factor modification LDL 30 A1c 4.9. Follow-up pending Holter monitor and hypercoagulable panel. Consulted PT/OT/ST. Improving headache with Fioricet. Patient not allowed to drive. Borderline low B12 level patient received vitamin B12 1000 mcg subcu x1. Outpatient follow-up Leukocytosis patient on steroids. Will monitor. No evidence of infection at this time. Resolved DVT prophylaxis with SCD and early ambulation Discharge Planning: Discharge patient to home Condition on discharge: Improved Regular Diet as tolerated Ad Lauren activity no driving Rx written: Aspirin and Fioricet Follow-up with primary care physician and neurology.
[2017-12-11 11:01] LABS: Cholesterol 107 mg/dL (120-200)
[2017-12-11 11:02] LABS: Chol/HDL Ratio 3.87 Ratio; HDL Cholesterol 27.6 mg/dL (40.0-60.0); LDL Cholesterol,Calculated 30 mg/dL (0-99); Triglycerides 247 mg/dL (42-150)
[2017-12-11 12:02] LABS: Anti-Nuclear Antibody Screen Neg (Neg)
[2017-12-11 12:06] VITALS: BP 131/74; PULSE 65; TEMP 96.4; O2SAT 98
[2017-12-11] MEDS: Sod Chloride 0.9% Inj 1,000 ML IV.CONT SCH (14:51)
[2017-12-13 03:52] LABS: Homocysteine (Cardiovascular) 11.7 umol/L (<11.4)
--- NOTE | 2017-12-13 10:11 | HM ---
Date Performed: 12/10/2017 Time Performed: 18:22:00 HOOKUP DATE: 12/10/17 06:22:00 PM Ruth ANALYSIS START TIME: 12/10/2017 6:27:00 PM ANALYSIS END TIME: 12/11/2017 2:42:27 PM PATIENT AGE: 41 PATIENT HEIGHT: 70 PATIENT WEIGHT: 323 DRUG LIST: ROOM [id number] PATIENT DIAGNOSIS: RIGHT FACIAL NUMBNESS TEST NARRATIVE: The patient's average heart rate was 75 BPM. No episodes of tachycardia wer e noted. No episodes of bradycardia were noted. No pauses exceeding 2.0 seconds were noted. No ventricular ectopics were noted. 2808 supraventricular ectopics, which represented 3% of the t otal beat count, were noted. The highest supraventricular ectopic frequency occurred from 08:00 PM t o 09:00 PM Ruth. During this time 245 SVE(s) occurred. No episodes of ST depression (defined as - 1.0 mm or more) were noted in channel 1. No episodes of ST depression (defined as -1.0 mm or more) w ere noted in channel 2. No episodes of ST depression (defined as -1.0 mm or more) were noted in tate amanda 3. NO DIARY WAS RETURNED BY PATIENT TEST INTERPRETATION: Sinus rhythm PACs No pause No ventricular tachycardia No supraventricular tachycardia observed There is no entry in the diary Signed by : Rowena harrell
[2017-12-14 17:51] LABS: Dil Russell Viper Venom Conf ( NEGATIVE (NEGATIVE); Dil Russell Viper Venom Time M ND (CORRECTED); Lupus Anticoagulant PTT Screen 35 seconds (< OR = 40)
[2017-12-15 03:49] LABS: Activated Protein C Resistance 4.8 ratio (> OR = 2.1)
[2017-12-16 13:26] LABS: Factor V Leiden Mutation Negative (Negative); Protein C Antigen 111 % (70-150)
== END 2017-12-11 15:19 | disposition home or self-care (01) ==
LOC: PHEDDLT 16:22 → PH3 16:22
PROVIDERS: ADMIT Internal Medicine; ATTEND Internal Medicine